=== PATIENT | male | born 1965 | race Caucasian/White ===

== ENCOUNTER 2017-08-24 07:32 | Outpatient (CLI) | payer OTHER ==
[2014-12-27 11:42] VITALS: BP 130/68
[2017-08-24 08:21] LABS: eGFR (African) > 60; eGFR (Non-African) > 60
== END 2017-08-24 13:29 ==
LOC: LAB 07:32
PROVIDERS: ATTEND Family Medicine
DX: I10 Essential (primary) hypertension (principal); R73.9 Hyperglycemia, unspecified
CPT/HCPCS: 36415; 80053; 80061; 83036

== ENCOUNTER 2018-07-03 11:07 | Emergency (ER) | payer OTHER ==
[2018-07-03] MEDS ORDERED: DIPH,PERTUSS(ACELL),TET VAC/PF 0.5 ML DISP.SYRIN IM ONE (12:46)
--- NOTE | 2018-07-03 12:58 | ED Physician Documentation ---
General Adult - HISTORIAN Historian: patient - HPI Stated Complaint: head lac Chief Complaint: Laceration/Recheck/Suture Additional Information: working under truck at [employer] bumped head through stocking cap w 1.5 cm lac bled moderately edges approximate-jagged deniews head or neck pain =-did see stars for moment Onset: hours (1) Timing: still present Severity: mild - ROS CONST: no problems. denies: fever, sweating, recent illness, weakness, weight loss EYES/ENT: none CVS/RESP: none GI/: none MS/SKIN/LYMPH: none NEURO/PSYCH: headache (lac site when used betadine for cleansing-) - PAST HX Past History: hypertension Surgeries/Procedures: other (appy as child) Allergies/Adverse Reactions: Allergies Allergy/AdvReac Type Severity Reaction Status Date / Time No Known Allergies Allergy Verified 07/03/18 11:28 Home Medications: Ambulatory Orders Medication Instructions Recorded Potassium Gluconate [Potassium] 99 mg PO HS u2 01/04/18 - SOCIAL HX Smoking History: non-smoker Alcohol Use: rarely Drug Use: none - FAMILY HX Family History: No - VITAL SIGNS Vital Signs: Vital Signs Temp Pulse Resp BP Pulse Ox 102 H 16 157/71 95 07/03/18 11:12 07/03/18 11:12 07/03/18 11:12 07/03/18 11:12 - REVIEWED ASSESSMENTS Nursing Assessment Reviewed: Yes Vitals Reviewed: Yes Procedures Wound Location: head Wound's Depth, Shape: superficial Wound Explored: no foreign body removed Betadine Prep?: Yes (probed to bottom lac w/betadine) Wound Repaired With: Dermabond ED Results Lab/Radiology - Orders Orders: ED Orders Category Date Time Status Skin Adhesive NOW Care 07/03/18 13:00 Ordered UDS [DRUG SCREEN URINE MEDICAL ONLY] Routine Lab 07/03/18 Ordered Diph,Pertuss(Acell),Tet Vac/Pf [Adacel] Med 07/03/18 12:46 Once 0.5 ml IM .ONCE ONE General Adult Physical Exam - PHYSICAL EXAM GENERAL APPEARANCE: mild distress EENT: eye inspection normal, ASHELY, no nystagmus NECK: normal inspection, supple. No: lymphadenopathy, stiff neck, carotid bruit RESPIRATORY: no resp distress, chest non-tender, breath sounds normal CVS: reg rate & rhythm, heart sounds normal ABDOMEN: soft, non-tender SKIN: warm/dry, normal color. No: cyanosis, diaphoresis, jaundice, mottled EXTREMITIES: non-tender, normal range of motion NEURO: oriented X3, CN's nml as tested, motor nml, sensation nml, mood/affect nml, cognition normal Discharge Clincal Impression: head laceration 1.5cm Referrals: Jose Ty MD [Primary Care Provider] - 2 Days Comments: keep cklean no shampoo for 2 days Condition: Good Disposition: 01 HOME, SELF-CARE Decision to Admit: NO Decision Time: 13:04
[2018-07-03 13:53] VITALS: BP 166/97
== END 2018-07-03 13:45 | disposition home or self-care (01) ==
LOC: ED 11:07
DX: S01.91XA Laceration without foreign body of unspecified part of head, initial encounter (principal); W22.09XA Striking against other stationary object, initial encounter; Y93.89 Activity, other specified; Y92.524 Gas station as the place of occurrence of the external cause; Y99.0 Civilian activity done for income or pay
CPT/HCPCS: 12001; 90471; 90715; 99282; 99283

== ENCOUNTER 2019-06-08 05:28 | Emergency (ER) | payer OTHER ==
[2019-06-08] MEDS: ORPHENADRINE CITRATE 60 MG/2 ML ML IM ONE (05:53)
[2019-06-08] MEDS: KETOROLAC TROMETHAMINE 60 MG/2 ML VIAL IM ONE (05:53)
--- NOTE | 2019-06-08 05:56 | ED Physician Documentation ---
Low Back Pain - HISTORIAN Historian: patient - HPI Stated Complaint: "I am having LBP" Chief Complaint: Low Back Pain/ Injury Additional Information: 54 year old male presents to the ER with low back pain that started yesterday; has been using salonpas and heating pad; woke up this morning and he could hardly get out of bed; states that he called in to work today and will need work excuse. History: back pain Onset: days ago Duration: continues in ED Recent Injury: No Context: lifting, turning Where: work Other Injuries: back Severity: mild Quality: denies: burning, sharp Associated Symptoms: denies: fever, chills, problems urinating, difficulty walking Worsened By:: upright position, movement to RT flexion, movement to LT flexion Relieved By: supine, remaining still - ROS CONST: no problems CVS/RESP: none EYES/ENT: none MS/SKIN/LYMPH: none Neuro/Psych: none GI/: denies: abdominal pain - PAST HX Past History: back pain Other History: hypertension Surgeries/Procedures: appendectomy Immunizations: UTD Allergies/Adverse Reactions: Allergies Allergy/AdvReac Type Severity Reaction Status Date / Time No Known Allergies Allergy Verified 06/08/19 05:43 Home Medications: Ambulatory Orders Medication Instructions Recorded Potassium Gluconate [Potassium] 99 mg PO HS u2 01/04/18 Cyclobenzaprine HCl [Flexeril] 5 mg PO TID PRN #15 tablet 06/08/19 predniSONE [Deltasone] 40 mg PO DAILY #10 tablet 06/08/19 - SOCIAL HX Smoking History: non-smoker Alcohol Use: none Drug Use: none - FAMILY HX Family History: none - VITAL SIGNS Vital Signs: Vital Signs Temp Pulse Resp BP Pulse Ox 98.5 F 83 16 135/87 98 06/08/19 06:08 06/08/19 06:08 06/08/19 06:08 06/08/19 06:08 06/08/19 06:08 - REVIEWED ASSESSMENTS Nursing Assessment Reviewed: Yes Vitals Reviewed: Yes ED Results Lab/Radiology - Orders Orders: ED Orders Category Date Time Status Ketorolac Tromethamine [Toradol] Med 06/08/19 05:50 Discontinued 60 mg IM NOW ONE Orphenadrine Citrate [Norflex] Med 06/08/19 05:50 Discontinued 60 mg IM NOW ONE Low Back Pain/Injury - Physical Exam General Appearance: alert, mild distress EENT: eye inspection normal, ENT inspection normal, pharynx normal, ASHELY Neck: non-tender, painless ROM Resp/CVS: breath sounds nml, heart sounds nml Abdomen: non-tender Back: muscle spasm Straight Leg Raising: Negative Left, Negative Right Neuro/Psych: oriented x3, motor nml, sensation nml, mood/affect nml Skin: warm/dry, normal color Extremities: normal range of motion Discharge Clincal Impression: Low back pain Prescriptions: Cyclobenzaprine HCl [Flexeril] 5 mg PO TID PRN #15 tablet PRN Reason: muscle spasm predniSONE [Deltasone] 40 mg PO DAILY #10 tablet Referrals: Jose Ty MD [Primary Care Provider] - 2 Days Additional Instructions: Take Prednisone 40 mg daily for inflammation Take Flexeril 5mg by mouth 3 times a day as needed for muscle spasms Continue to use heating pads Use Icy Hot, BenGay, Biofreeze Follow up with PCP for re-evaluation Condition: Stable Disposition: 01 HOME, SELF-CARE Decision to Admit: NO Decision Time: 10:40
[2019-06-08 06:10] VITALS: BP 135/87
== END 2019-06-08 06:10 | disposition home or self-care (01) ==
LOC: ED 05:28
DX: M54.5 Low back pain (principal)
CPT/HCPCS: 96372; 99284; J1885; J2360